=== PATIENT | male | born 1990 | race African-American/Black ===

== ENCOUNTER 2018-05-02 21:23 | Emergency (ER) | payer OTHER ==
[~2018-05-02] VITALS: Ht 188 cm; Wt 77.0 kg
[~2018-05-02 21:23] MED LIST: RISPERDAL; SEROQUEL
[2018-05-03 05:35] LABS: BASOPHILS % 0.8 % (0.0-2.0); EOSINOPHILS % 3.6 % (0.0-5.0); HEMATOCRIT. 38.1 % (42.0-52.0); HEMOGLOBIN. 12.3 g/dL (14.0-18.0); LYMPHOCYTES % 22.3 % (20.0-50.0); MEAN CORPUSCULAR HEMOGLOBIN 25.7 pg (28.0-32.0); MEAN CORPUSCULAR VOLUME 79.4 fL (80.0-94.0); MEAN PLATELET VOLUME 7.3 fl (7.4-10.4); MONOCYTES % 9.8 % (2.0-8.0); NEUTROPHILS % 63.5 % (40.0-76.0); PLATELET 254 x1000/uL (130-400); RED CELL DISTRIBUTION WIDTH 17.1 % (11.6-14.6)
[2018-05-03 05:39] LABS: CHLORIDE 109 mEq/L (98-107)
[2018-05-03 05:44] LABS: ETHANOL BLOOD < 10 mg/dL
[2018-05-03 05:49] LABS: METHADONE URINE SCREEN NEGATIVE (NEGATIVE); OPIATES URINE SCREEN NEGATIVE (NEGATIVE)
[2018-05-03 05:50] LABS: *AMPHETAMINES SCREEN URINE NEGATIVE (NEGATIVE); *BARBITURATES SCREEN URINE NEGATIVE (NEGATIVE); *BENZODIAZEPINES SCREEN URINE NEGATIVE (NEGATIVE); *COCAINE SCREEN URINE NEGATIVE (NEGATIVE); CANNABINOID URINE SCREEN PRESUMTIVE POSITIVE (NEGATIVE); PHENCYCLIDINE URINE SCREEN NEGATIVE (NEGATIVE)
[2018-05-03 07:07] VITALS: BP 111/61
== END 2018-05-03 07:10 | disposition home or self-care (01) ==
LOC: ER 21:23
DX: F31.9 Bipolar disorder, unspecified (principal); F17.200 Nicotine dependence, unspecified, uncomplicated; Z79.899 Other long term (current) drug therapy; Z59.0 Homelessness
CPT/HCPCS: 36415; 80305; 80307; 80320; 80329; 99284; G0480

== ENCOUNTER 2018-05-15 18:59 | Emergency (ER) | payer OTHER | END 2018-05-15 20:37 | disposition left against medical advice (07) | LOC: ER 18:59 | DX: Z53.21 Procedure and treatment not carried out due to patient leaving prior to being seen by health care provider (principal) ==

== ENCOUNTER 2018-05-16 01:35 | Emergency (ER) | payer OTHER ==
[~2018-05-16] VITALS: Ht 177.8 cm; Wt 75.0 kg
[2018-05-16 05:19] VITALS: BP 101/60
== END 2018-05-16 08:45 | disposition left against medical advice (07) ==
LOC: ER 01:35
DX: R42 Dizziness and giddiness (principal); R53.1 Weakness; Z53.21 Procedure and treatment not carried out due to patient leaving prior to being seen by health care provider

== ENCOUNTER 2018-09-18 00:26 | Emergency (ER) | payer OTHER ==
[~2018-09-18] VITALS: Ht 185.4 cm; Wt 75.0 kg
[2018-09-18] MEDS ORDERED: IBUPROFEN 600MG TABLET PO STA (01:21)
[2018-09-18 05:18] VITALS: BP 119/72
== END 2018-09-18 05:20 | disposition home or self-care (01) ==
LOC: ER 00:46
DX: G44.89 Other headache syndrome (principal); M54.89 Other dorsalgia
CPT/HCPCS: 99283

== ENCOUNTER 2018-11-08 18:23 | Emergency (ER) | payer OTHER ==
[~2018-11-08] VITALS: Ht 185.4 cm; Wt 75.0 kg
[2018-11-08] MEDS ORDERED: LORAZEPAM 1MG TABLET PO ONE (20:15)
[2018-11-08 21:43] LABS: BASOPHILS % 0.9 % (0.0-2.0); EOSINOPHILS % 4.6 % (0.0-5.0); HEMATOCRIT. 38.2 % (42.0-52.0); HEMOGLOBIN. 12.7 g/dL (14.0-18.0); LYMPHOCYTES % 27.8 % (20.0-50.0); MEAN CORPUSCULAR VOLUME 84.4 fL (80.0-94.0); MEAN PLATELET VOLUME 8.3 fl (7.4-10.4); MONOCYTES % 11.3 % (2.0-8.0); NEUTROPHILS % 55.4 % (40.0-76.0); PLATELET 264 x1000/uL (130-400); RED BLOOD CELL COUNT 4.53 mill/uL (4.7-6.1); RED CELL DISTRIBUTION WIDTH 15.7 % (11.6-14.6)
[2018-11-08 21:45] LABS: CHLORIDE 110 mEq/L (98-107)
[2018-11-08 21:50] LABS: ETHANOL BLOOD < 10 mg/dL
[2018-11-09 03:44] LABS: CLARITY URINE CLEAR (CLEAR); COLOR URINE YELLOW (YELLOW); KETONES URINE NEGATIVE (NEGATIVE); LEUKOCYTE ESTERASE URINE NEGATIVE (NEGATIVE); NITRITE URINE NEGATIVE (NEGATIVE); OCCULT BLOOD URINE NEGATIVE (NEGATIVE); PH URINE 5.5 (4.5-8.0); PROTEIN URINE NEGATIVE (NEGATIVE); SPECIFIC GRAVITY URINE 1.021 (1.005-1.030); UROBILINOGEN URINE 0.2 E.U./dL (0.2-1.0)
[2018-11-09 04:00] LABS: *BENZODIAZEPINES SCREEN URINE NEGATIVE (NEGATIVE); *COCAINE SCREEN URINE NEGATIVE (NEGATIVE)
[2018-11-09 04:01] LABS: METHADONE URINE SCREEN NEGATIVE (NEGATIVE); OPIATES URINE SCREEN NEGATIVE (NEGATIVE)
[2018-11-09 04:02] LABS: *BARBITURATES SCREEN URINE NEGATIVE (NEGATIVE); PHENCYCLIDINE URINE SCREEN NEGATIVE (NEGATIVE)
[2018-11-09 04:03] LABS: *AMPHETAMINES SCREEN URINE NEGATIVE (NEGATIVE); CANNABINOID URINE SCREEN PRESUMTIVE POSITIVE (NEGATIVE)
[2018-11-09 09:47] VITALS: BP 128/72
== END 2018-11-09 09:49 | disposition home or self-care (01) ==
LOC: ER 18:23
DX: R45.850 Homicidal ideations (principal); R45.851 Suicidal ideations; R45.1 Restlessness and agitation; F17.210 Nicotine dependence, cigarettes, uncomplicated; Z71.6 Tobacco abuse counseling; F43.9 Reaction to severe stress, unspecified
CPT/HCPCS: 36415; 80305; 80307; 80320; 80329; 81003; 99284; 99406; G0480

== ENCOUNTER 2018-11-29 15:15 | Emergency (ER) | payer OTHER ==
[~2018-11-29] VITALS: Ht 185.4 cm; Wt 73.0 kg
[2018-11-29 15:19] VITALS: BP 107/51
== END 2018-11-29 18:07 | disposition left against medical advice (07) ==
LOC: ER 15:15
DX: Z53.21 Procedure and treatment not carried out due to patient leaving prior to being seen by health care provider (principal)

== ENCOUNTER 2018-12-27 21:15 | Emergency (ER) | payer OTHER ==
[~2018-12-27] VITALS: Ht 185.4 cm; Wt 75.0 kg
[2018-12-28] MEDS ORDERED: ACETAMINOPHEN 325MG TABLET PO ONE (00:15)
[2018-12-28 01:48] LABS: CLARITY URINE CLEAR (CLEAR); COLOR URINE YELLOW (YELLOW); KETONES URINE TRACE (NEGATIVE); LEUKOCYTE ESTERASE URINE NEGATIVE (NEGATIVE); NITRITE URINE NEGATIVE (NEGATIVE); OCCULT BLOOD URINE NEGATIVE (NEGATIVE); PH URINE 6.5 (4.5-8.0); PROTEIN URINE NEGATIVE (NEGATIVE); SPECIFIC GRAVITY URINE 1.026 (1.005-1.030)
[2018-12-28 03:30] VITALS: BP 112/54
== END 2018-12-28 05:15 | disposition home or self-care (01) ==
LOC: ER 21:15
DX: R10.9 Unspecified abdominal pain (principal); Z59.0 Homelessness
CPT/HCPCS: 81003; 99283

== ENCOUNTER 2019-01-06 21:21 | Emergency (ER) | payer OTHER ==
[~2019-01-06] VITALS: Ht 185.4 cm; Wt 75.0 kg
[2019-01-06] MEDS ORDERED: IBUPROFEN 600MG TABLET PO ONE (22:30)
[2019-01-06] MEDS ORDERED: ACETAMINOPHEN 500MG TABLET PO ONE (22:30)
[2019-01-07 04:00] VITALS: BP 123/78
== END 2019-01-07 05:03 | disposition left against medical advice (07) ==
LOC: ER 21:21
DX: M54.5 Low back pain (principal); Z59.0 Homelessness; Z79.899 Other long term (current) drug therapy
CPT/HCPCS: 99283

== ENCOUNTER 2019-01-12 13:16 | Emergency (ER) | payer OTHER ==
[~2019-01-12] VITALS: Ht 175.3 cm; Wt 75.0 kg
[2019-01-12 16:40] LABS: CLARITY URINE CLOUDY (CLEAR); COLOR URINE YELLOW (YELLOW); KETONES URINE NEGATIVE (NEGATIVE); LEUKOCYTE ESTERASE URINE NEGATIVE (NEGATIVE); NITRITE URINE NEGATIVE (NEGATIVE); OCCULT BLOOD URINE NEGATIVE (NEGATIVE); PH URINE >=9.0 (4.5-8.0); PROTEIN URINE NEGATIVE (NEGATIVE); SPECIFIC GRAVITY URINE 1.023 (1.005-1.030)
[2019-01-12 17:03] LABS: *AMPHETAMINES SCREEN URINE NEGATIVE (NEGATIVE); CANNABINOID URINE SCREEN PRESUMTIVE POSITIVE (NEGATIVE); PHENCYCLIDINE URINE SCREEN NEGATIVE (NEGATIVE)
[2019-01-12 17:04] LABS: *BARBITURATES SCREEN URINE NEGATIVE (NEGATIVE); *BENZODIAZEPINES SCREEN URINE NEGATIVE (NEGATIVE); *COCAINE SCREEN URINE NEGATIVE (NEGATIVE); METHADONE URINE SCREEN NEGATIVE (NEGATIVE); OPIATES URINE SCREEN NEGATIVE (NEGATIVE)
[2019-01-13 09:00] VITALS: BP 122/85
== END 2019-01-13 09:00 | disposition home or self-care (01) ==
LOC: ER 13:16
DX: J06.9 Acute upper respiratory infection, unspecified (principal); R03.0 Elevated blood-pressure reading, without diagnosis of hypertension; Z59.0 Homelessness
CPT/HCPCS: 71045; 80305; 81003; 99284

== ENCOUNTER 2019-02-06 17:58 | Emergency (ER) | payer OTHER ==
[~2019-02-06] VITALS: Ht 185.4 cm; Wt 75.0 kg
[2019-02-06 18:15] VITALS: BP 108/68
== END 2019-02-06 23:45 | disposition home or self-care (01) ==
LOC: ER 17:58
DX: F10.129 Alcohol abuse with intoxication, unspecified (principal); Y90.0 Blood alcohol level of less than 20 mg/100 ml
CPT/HCPCS: 82962; 99283

== ENCOUNTER 2019-03-09 21:01 | Emergency (ER) | payer OTHER ==
[~2019-03-09] VITALS: Ht 185.4 cm; Wt 75.0 kg
[2019-03-10] MEDS ORDERED: IBUPROFEN 600MG TABLET PO ONE (01:30)
[2019-03-10 06:30] VITALS: BP 139/84
== END 2019-03-10 06:47 | disposition home or self-care (01) ==
LOC: ER 21:01
DX: J06.9 Acute upper respiratory infection, unspecified (principal); Z59.0 Homelessness
CPT/HCPCS: 99283

== ENCOUNTER 2019-03-21 15:54 | Emergency (ER) | payer MEDICAID, OTHER ==
[~2019-03-21] VITALS: Ht 185.4 cm; Wt 75.0 kg
[2019-03-21] MEDS ORDERED: IBUPROFEN 600MG TABLET PO ONE (18:30)
[2019-03-22 01:27] VITALS: BP 107/55
== END 2019-03-22 06:25 | disposition left against medical advice (07) ==
LOC: ER 15:54
DX: R10.9 Unspecified abdominal pain (principal); Z59.0 Homelessness
CPT/HCPCS: 74021; 99283

== ENCOUNTER 2019-04-23 18:23 | Emergency (ER) | payer OTHER ==
[~2019-04-23] VITALS: Ht 185.4 cm; Wt 77.0 kg
[2019-04-23] MEDS ORDERED: HALOPERIDOL LACTATE 5MG/ML VIAL IM STA (18:51)
[2019-04-23 19:13] LABS: BASOPHILS % 0.4 % (0.0-2.0); CHLORIDE 105 mEq/L (98-107); EOSINOPHILS % 3.4 % (0.0-5.0); HEMATOCRIT. 42.8 % (42.0-52.0); HEMOGLOBIN. 14.1 g/dL (14.0-18.0); LYMPHOCYTES % 22.3 % (20.0-50.0); MEAN CORPUSCULAR HEMOGLOBIN 27.6 pg (28.0-32.0); MEAN PLATELET VOLUME 8.3 fl (7.4-10.4); MONOCYTES % 10.3 % (2.0-8.0); NEUTROPHILS % 63.6 % (40.0-76.0); PLATELET 220 x1000/uL (130-400); RED CELL DISTRIBUTION WIDTH 15.7 % (11.6-14.6)
[2019-04-23 19:17] LABS: ETHANOL BLOOD < 10 mg/dL
[2019-04-24 01:36] LABS: CLARITY URINE CLEAR (CLEAR); COLOR URINE YELLOW (YELLOW); KETONES URINE NEGATIVE (NEGATIVE); LEUKOCYTE ESTERASE URINE NEGATIVE (NEGATIVE); NITRITE URINE NEGATIVE (NEGATIVE); OCCULT BLOOD URINE NEGATIVE (NEGATIVE); PH URINE 5.5 (4.5-8.0); PROTEIN URINE NEGATIVE (NEGATIVE); SPECIFIC GRAVITY URINE 1.025 (1.005-1.030); UROBILINOGEN URINE 0.2 E.U./dL (0.2-1.0)
[2019-04-24 01:50] LABS: *AMPHETAMINES SCREEN URINE NEGATIVE (NEGATIVE); *BARBITURATES SCREEN URINE NEGATIVE (NEGATIVE); *BENZODIAZEPINES SCREEN URINE NEGATIVE (NEGATIVE); *COCAINE SCREEN URINE NEGATIVE (NEGATIVE)
[2019-04-24 01:51] LABS: CANNABINOID URINE SCREEN NEGATIVE (NEGATIVE); METHADONE URINE SCREEN NEGATIVE (NEGATIVE); OPIATES URINE SCREEN NEGATIVE (NEGATIVE); PHENCYCLIDINE URINE SCREEN NEGATIVE (NEGATIVE)
[2019-04-24 13:30] VITALS: BP 100/51
== END 2019-04-24 14:02 | disposition home or self-care (01) ==
LOC: ER 18:23
DX: R45.850 Homicidal ideations (principal); F32.9 Major depressive disorder, single episode, unspecified; Z59.0 Homelessness
CPT/HCPCS: 36415; 80053; 80305; 80320; 81003; 85025; 96372; 99285; J1630; G0480

== ENCOUNTER 2019-04-25 20:27 | Emergency (ER) | payer OTHER ==
[~2019-04-25] VITALS: Ht 185.4 cm; Wt 76.0 kg
[2019-04-26 08:13] VITALS: BP 123/89
== END 2019-04-26 08:15 | disposition home or self-care (01) ==
LOC: ER 20:27
DX: Z59.0 Homelessness (principal); Z75.1 Person awaiting admission to adequate facility elsewhere
CPT/HCPCS: 99285

== ENCOUNTER 2019-05-03 12:02 | Emergency (ER) | payer OTHER ==
[~2019-05-03] VITALS: Ht 185.4 cm; Wt 74.8 kg
[2019-05-03 13:15] VITALS: BP 114/71
[2019-05-03] MEDS ORDERED: KETOROLAC 30MG/ML VIAL IM ONE (13:15)
[2019-05-03 13:57] LABS: CLARITY URINE CLEAR (CLEAR); COLOR URINE YELLOW (YELLOW); KETONES URINE TRACE (NEGATIVE); LEUKOCYTE ESTERASE URINE 1+ (NEGATIVE); NITRITE URINE NEGATIVE (NEGATIVE); OCCULT BLOOD URINE NEGATIVE (NEGATIVE); PH URINE >=9.0 (4.5-8.0); PROTEIN URINE NEGATIVE (NEGATIVE); SPECIFIC GRAVITY URINE 1.028 (1.005-1.030)
== END 2019-05-03 14:36 | disposition home or self-care (01) ==
LOC: ER 12:02
DX: M54.5 Low back pain (principal); N39.0 Urinary tract infection, site not specified
CPT/HCPCS: 72100; 81003; 87086; 96372; 99284; J1885

== ENCOUNTER 2019-05-07 21:33 | Emergency (ER) | payer OTHER ==
[~2019-05-07] VITALS: Ht 185.4 cm; Wt 75.0 kg
[2019-05-08 06:42] VITALS: BP 123/65
[2019-05-08] MEDS ORDERED: FLUTICASONE PROPIONATE 50MCG/SPRAY BOTTLE BOTHNSTRLS SCH (09:00)
== END 2019-05-08 09:25 | disposition home or self-care (01) ==
LOC: ER 21:33
DX: R09.81 Nasal congestion (principal); Z59.0 Homelessness
CPT/HCPCS: 99285

== ENCOUNTER 2019-05-18 19:19 | Emergency (ER) | payer OTHER ==
[~2019-05-18] VITALS: Ht 185.4 cm; Wt 76.1 kg
[2019-05-19 06:50] VITALS: BP 114/75
== END 2019-05-19 08:13 | disposition left against medical advice (07) ==
LOC: ER 19:19
DX: Z59.0 Homelessness (principal)
CPT/HCPCS: 99281

== ENCOUNTER 2019-05-26 16:22 | Emergency (ER) | payer OTHER ==
[~2019-05-26] VITALS: Ht 185.4 cm; Wt 75.0 kg
[2019-05-26] MEDS ORDERED: ARIP20TA2 GT (16:36)
[2019-05-26] MEDS ORDERED: MECLIZINE 25MG TABLET PO ONE (17:30)
[2019-05-26 17:39] VITALS: BP 136/81
== END 2019-05-26 17:41 | disposition home or self-care (01) ==
LOC: ER 16:22
DX: R42 Dizziness and giddiness (principal); R00.1 Bradycardia, unspecified; R03.0 Elevated blood-pressure reading, without diagnosis of hypertension
CPT/HCPCS: 93005; 99283; J8597

== ENCOUNTER 2019-06-16 14:55 | Emergency (ER) | payer OTHER ==
[~2019-06-16] VITALS: Ht 185.4 cm; Wt 75.0 kg
[~2019-06-16 14:55] MED LIST changes: +ARIP20TA2 GT; -RISPERDAL; -SEROQUEL
[2019-06-16] MEDS ORDERED: ONDANSETRON HCL 4MG/2ML INJ IV STA (15:35)
[2019-06-16] MEDS ORDERED: KETOROLAC 30MG/ML VIAL IV STA (15:35)
[2019-06-16] MEDS ORDERED: SODIUM CHLORIDE 0.9% 1,000 ML IV ONE (15:35)
[2019-06-16 16:03] LABS: CLARITY URINE CLEAR (CLEAR); COLOR URINE YELLOW (YELLOW); KETONES URINE NEGATIVE (NEGATIVE); LEUKOCYTE ESTERASE URINE 1+ (NEGATIVE); NITRITE URINE NEGATIVE (NEGATIVE); OCCULT BLOOD URINE NEGATIVE (NEGATIVE); PROTEIN URINE NEGATIVE (NEGATIVE)
[2019-06-16 16:06] LABS: BASOPHILS % 0.6 % (0.0-2.0); EOSINOPHILS % 1.3 % (0.0-5.0); HEMATOCRIT. 39.2 % (42.0-52.0); HEMOGLOBIN. 12.9 g/dL (14.0-18.0); LYMPHOCYTES % 12.7 % (20.0-50.0); MEAN CORPUSCULAR HEMOGLOBIN 26.8 pg (28.0-32.0); MEAN CORPUSCULAR VOLUME 81.7 fL (80.0-94.0); MEAN PLATELET VOLUME 8.2 fl (7.4-10.4); MONOCYTES % 7.2 % (2.0-8.0); NEUTROPHILS % 78.2 % (40.0-76.0); PLATELET 257 x1000/uL (130-400); RED BLOOD CELL COUNT 4.79 mill/uL (4.7-6.1); RED CELL DISTRIBUTION WIDTH 15.6 % (11.6-14.6)
[2019-06-16 16:09] LABS: CHLORIDE 108 mEq/L (98-107)
[2019-06-16 16:13] LABS: ETHANOL BLOOD < 10 mg/dL
[2019-06-16 16:23] LABS: *AMPHETAMINES SCREEN URINE NEGATIVE (NEGATIVE); *BARBITURATES SCREEN URINE NEGATIVE (NEGATIVE); *BENZODIAZEPINES SCREEN URINE NEGATIVE (NEGATIVE); *COCAINE SCREEN URINE NEGATIVE (NEGATIVE); OPIATES URINE SCREEN NEGATIVE (NEGATIVE)
[2019-06-16 16:24] LABS: CANNABINOID URINE SCREEN PRESUMTIVE POSITIVE (NEGATIVE); METHADONE URINE SCREEN NEGATIVE (NEGATIVE); PHENCYCLIDINE URINE SCREEN NEGATIVE (NEGATIVE)
[2019-06-16 17:35] VITALS: BP 126/72
== END 2019-06-16 18:00 | disposition home or self-care (01) ==
LOC: ER 14:55
DX: R10.13 Epigastric pain (principal); R03.0 Elevated blood-pressure reading, without diagnosis of hypertension
CPT/HCPCS: 36415; 74176; 80053; 80305; 80320; 81003; 83690; 85025; 93005; 96374; 96375; 99285; J1885; J2405; J7030; G0480

== ENCOUNTER 2019-07-06 12:07 | Emergency (ER) | payer OTHER ==
[~2019-07-06] VITALS: Ht 185.4 cm; Wt 75.0 kg
[2019-07-06 12:19] VITALS: BP 155/75
== END 2019-07-06 13:01 | disposition left against medical advice (07) ==
LOC: ER 12:07
DX: R07.89 Other chest pain (principal); R45.850 Homicidal ideations
CPT/HCPCS: 93005; 99283

== ENCOUNTER 2019-07-09 18:02 | Emergency (ER) | payer MEDICAID, OTHER ==
[~2019-07-09] VITALS: Ht 165.1 cm; Wt 56.0 kg
[2019-07-09 18:13] VITALS: BP 147/76
== END 2019-07-09 19:00 | disposition left against medical advice (07) ==
LOC: ER 18:02
DX: Z53.21 Procedure and treatment not carried out due to patient leaving prior to being seen by health care provider (principal)

== ENCOUNTER 2019-08-10 13:05 | Emergency (ER) | payer MEDICAID ==
[~2019-08-10] VITALS: Ht 185.4 cm; Wt 75.0 kg
[2019-08-10 14:06] LABS: BASOPHILS % 1.3 % (0.0-2.0); EOSINOPHILS % 3.4 % (0.0-5.0); HEMATOCRIT. 38.7 % (42.0-52.0); HEMOGLOBIN. 12.9 g/dL (14.0-18.0); LYMPHOCYTES % 22.4 % (20.0-50.0); MEAN CORPUSCULAR HEMOGLOBIN 27.3 pg (28.0-32.0); MEAN CORPUSCULAR VOLUME 81.8 fL (80.0-94.0); MEAN PLATELET VOLUME 8.4 fl (7.4-10.4); MONOCYTES % 11.8 % (2.0-8.0); NEUTROPHILS % 61.1 % (40.0-76.0); PLATELET 279 x1000/uL (130-400); RED BLOOD CELL COUNT 4.73 mill/uL (4.7-6.1); RED CELL DISTRIBUTION WIDTH 15.5 % (11.6-14.6)
[2019-08-10 14:09] LABS: CHLORIDE 110 mEq/L (98-107)
[2019-08-10 14:15] LABS: ETHANOL BLOOD 18 mg/dL
[2019-08-10] MEDS ORDERED: LORAZEPAM 1MG TABLET PO ONE (15:15)
[2019-08-10] MEDS: ARIPIPRAZOLE 5MG TABLET PO SCH (15:44)
[2019-08-10 16:23] LABS: CLARITY URINE CLOUDY (CLEAR); COLOR URINE YELLOW (YELLOW); KETONES URINE TRACE (NEGATIVE); LEUKOCYTE ESTERASE URINE NEGATIVE (NEGATIVE); NITRITE URINE NEGATIVE (NEGATIVE); OCCULT BLOOD URINE NEGATIVE (NEGATIVE); PH URINE 6.5 (4.5-8.0); PROTEIN URINE NEGATIVE (NEGATIVE); SPECIFIC GRAVITY URINE 1.034 (1.005-1.030)
[2019-08-10 16:35] LABS: *AMPHETAMINES SCREEN URINE NEGATIVE (NEGATIVE); *BARBITURATES SCREEN URINE NEGATIVE (NEGATIVE); *BENZODIAZEPINES SCREEN URINE NEGATIVE (NEGATIVE); *COCAINE SCREEN URINE NEGATIVE (NEGATIVE); METHADONE URINE SCREEN NEGATIVE (NEGATIVE); OPIATES URINE SCREEN NEGATIVE (NEGATIVE)
[2019-08-10 16:36] LABS: CANNABINOID URINE SCREEN PRESUMTIVE POSITIVE (NEGATIVE); PHENCYCLIDINE URINE SCREEN NEGATIVE (NEGATIVE)
[2019-08-10] MEDS ORDERED: QUETIAPINE FUMARATE 50MG TABLET PO ONE (23:00)
[2019-08-11] MEDS: ARIPIPRAZOLE 5MG TABLET PO SCH (09:51)
[2019-08-11 13:49] VITALS: BP 122/73
== END 2019-08-11 14:05 | disposition home or self-care (01) ==
LOC: ER 13:05
DX: R45.851 Suicidal ideations (principal)
CPT/HCPCS: 36415; 80053; 80305; 80307; 80320; 80329; 81003; 85025; 99285; G0480

== ENCOUNTER 2019-09-03 20:58 | Emergency (ER) | payer MEDICAID, OTHER ==
[~2019-09-03] VITALS: Ht 185.4 cm; Wt 75.0 kg
[2019-09-03 23:39] LABS: CHLORIDE 108 mEq/L (98-107)
[2019-09-03 23:43] LABS: ETHANOL BLOOD < 10 mg/dL
[2019-09-03 23:47] LABS: BASOPHILS % 0.4 % (0.0-2.0); EOSINOPHILS % 2.5 % (0.0-5.0); HEMOGLOBIN. 12.6 g/dL (14.0-18.0); LYMPHOCYTES % 22.9 % (20.0-50.0); MEAN CORPUSCULAR HEMOGLOBIN 27.2 pg (28.0-32.0); MEAN CORPUSCULAR VOLUME 82.1 fL (80.0-94.0); MEAN PLATELET VOLUME 8.6 fl (7.4-10.4); MONOCYTES % 11.3 % (2.0-8.0); NEUTROPHILS % 62.9 % (40.0-76.0); PLATELET 272 x1000/uL (130-400); RED BLOOD CELL COUNT 4.63 mill/uL (4.7-6.1)
[2019-09-03] MEDS ORDERED: SODIUM CHLORIDE 0.9% 1,000 ML IV ONE (23:51)
[2019-09-04 06:57] LABS: CLARITY URINE CLOUDY (CLEAR); COLOR URINE YELLOW (YELLOW); KETONES URINE NEGATIVE (NEGATIVE); LEUKOCYTE ESTERASE URINE 1+ (NEGATIVE); NITRITE URINE NEGATIVE (NEGATIVE); OCCULT BLOOD URINE NEGATIVE (NEGATIVE); PH URINE 5.5 (4.5-8.0); PROTEIN URINE NEGATIVE (NEGATIVE); SPECIFIC GRAVITY URINE 1.032 (1.005-1.030)
[2019-09-04 07:08] VITALS: BP 120/70
[2019-09-04 07:20] LABS: *BENZODIAZEPINES SCREEN URINE NEGATIVE (NEGATIVE); *COCAINE SCREEN URINE NEGATIVE (NEGATIVE)
[2019-09-04 07:21] LABS: *AMPHETAMINES SCREEN URINE NEGATIVE (NEGATIVE); *BARBITURATES SCREEN URINE NEGATIVE (NEGATIVE); CANNABINOID URINE SCREEN NEGATIVE (NEGATIVE); METHADONE URINE SCREEN NEGATIVE (NEGATIVE); OPIATES URINE SCREEN NEGATIVE (NEGATIVE); PHENCYCLIDINE URINE SCREEN NEGATIVE (NEGATIVE)
== END 2019-09-04 07:11 | disposition home or self-care (01) ==
LOC: ER 20:58
DX: R45.850 Homicidal ideations (principal)
CPT/HCPCS: 36415; 80053; 80305; 80307; 80320; 80329; 81003; 85025; 87086; 99285; J7030; G0480

== ENCOUNTER 2019-10-04 05:30 | Emergency (ER) | payer OTHER ==
[~2019-10-04] VITALS: Ht 185.4 cm; Wt 72.0 kg
[2019-10-04 05:33] VITALS: BP 130/80
[2019-10-04] MEDS ORDERED: LIDOCAINE 5% PATCH TOP SCH (07:00)
== END 2019-10-04 07:06 | disposition left against medical advice (07) ==
LOC: ER 06:11
DX: M54.5 Low back pain (principal)
CPT/HCPCS: 99281

== ENCOUNTER 2019-10-14 06:30 | Emergency (ER) | payer OTHER ==
[~2019-10-14] VITALS: Ht 185.4 cm; Wt 75.0 kg
[2019-10-14 06:31] VITALS: BP 110/60
[2019-10-14] MEDS ORDERED: NAPROXEN 250MG TABLET PO ONE (07:00)
== END 2019-10-14 07:14 | disposition home or self-care (01) ==
LOC: ER 06:30
DX: M54.5 Low back pain (principal); F17.290 Nicotine dependence, other tobacco product, uncomplicated
CPT/HCPCS: 93005; 99283

== ENCOUNTER 2019-11-05 11:46 | Emergency (ER) | payer OTHER ==
[~2019-11-05] VITALS: Ht 185.4 cm; Wt 74.0 kg
[2019-11-05 12:47] LABS: BASOPHILS % 1.1 % (0.0-2.0); EOSINOPHILS % 1.4 % (0.0-5.0); HEMATOCRIT. 37.6 % (42.0-52.0); HEMOGLOBIN. 12.5 g/dL (14.0-18.0); LYMPHOCYTES % 20.1 % (20.0-50.0); MEAN CORPUSCULAR HEMOGLOBIN 27.5 pg (28.0-32.0); MEAN CORPUSCULAR VOLUME 82.7 fL (80.0-94.0); MEAN PLATELET VOLUME 8.7 fl (7.4-10.4); MONOCYTES % 10.3 % (2.0-8.0); NEUTROPHILS % 67.1 % (40.0-76.0); PLATELET 238 x1000/uL (130-400); RED BLOOD CELL COUNT 4.55 mill/uL (4.7-6.1); RED CELL DISTRIBUTION WIDTH 16.6 % (11.6-14.6)
[2019-11-05 12:53] LABS: CHLORIDE 107 mEq/L (98-107)
[2019-11-05 12:57] LABS: ETHANOL BLOOD < 10 mg/dL
[2019-11-05 13:21] LABS: CLARITY URINE CLEAR (CLEAR); COLOR URINE YELLOW (YELLOW); KETONES URINE NEGATIVE (NEGATIVE); LEUKOCYTE ESTERASE URINE TRACE (NEGATIVE); NITRITE URINE NEGATIVE (NEGATIVE); OCCULT BLOOD URINE NEGATIVE (NEGATIVE); PH URINE 8.5 (4.5-8.0); PROTEIN URINE NEGATIVE (NEGATIVE); SPECIFIC GRAVITY URINE 1.031 (1.005-1.030)
[2019-11-05 14:00] VITALS: BP 127/80
[2019-11-05 14:09] LABS: *AMPHETAMINES SCREEN URINE NEGATIVE (NEGATIVE); *BARBITURATES SCREEN URINE NEGATIVE (NEGATIVE); *BENZODIAZEPINES SCREEN URINE NEGATIVE (NEGATIVE); *COCAINE SCREEN URINE NEGATIVE (NEGATIVE); CANNABINOID URINE SCREEN PRESUMTIVE POSITIVE (NEGATIVE); METHADONE URINE SCREEN NEGATIVE (NEGATIVE); PHENCYCLIDINE URINE SCREEN NEGATIVE (NEGATIVE)
[2019-11-05 14:10] LABS: OPIATES URINE SCREEN NEGATIVE (NEGATIVE)
== END 2019-11-05 15:05 | disposition left against medical advice (07) ==
LOC: ER 11:46
DX: R45.850 Homicidal ideations (principal); F20.9 Schizophrenia, unspecified
CPT/HCPCS: 36415; 80053; 80305; 80320; 81003; 85025; 99283; G0480

== ENCOUNTER 2019-11-24 19:38 | Emergency (ER) | payer OTHER ==
[~2019-11-24] VITALS: Ht 182.9 cm; Wt 73.0 kg
[2019-11-24] MEDS ORDERED: OLANZAPINE 10 MG/VIAL IM ONE (22:15)
[2019-11-24 23:03] LABS: BASOPHILS % 1.4 % (0.0-2.0); EOSINOPHILS % 5.5 % (0.0-5.0); HEMATOCRIT. 37.6 % (42.0-52.0); HEMOGLOBIN. 12.5 g/dL (14.0-18.0); MEAN CORPUSCULAR HEMOGLOBIN 27.2 pg (28.0-32.0); MEAN CORPUSCULAR VOLUME 81.7 fL (80.0-94.0); MEAN PLATELET VOLUME 8.6 fl (7.4-10.4); MONOCYTES % 10.9 % (2.0-8.0); NEUTROPHILS % 50.2 % (40.0-76.0); PLATELET 222 x1000/uL (130-400); RED BLOOD CELL COUNT 4.61 mill/uL (4.7-6.1); RED CELL DISTRIBUTION WIDTH 16.2 % (11.6-14.6)
[2019-11-24 23:11] LABS: CHLORIDE 105 mEq/L (98-107)
[2019-11-24 23:17] LABS: ETHANOL BLOOD 15 mg/dL
[2019-11-25 01:53] LABS: *AMPHETAMINES SCREEN URINE NEGATIVE (NEGATIVE); *BARBITURATES SCREEN URINE NEGATIVE (NEGATIVE); *BENZODIAZEPINES SCREEN URINE NEGATIVE (NEGATIVE); *COCAINE SCREEN URINE NEGATIVE (NEGATIVE); CANNABINOID URINE SCREEN PRESUMTIVE POSITIVE (NEGATIVE); METHADONE URINE SCREEN NEGATIVE (NEGATIVE); OPIATES URINE SCREEN NEGATIVE (NEGATIVE); PHENCYCLIDINE URINE SCREEN NEGATIVE (NEGATIVE)
[2019-11-25 05:42] VITALS: BP 97/62
== END 2019-11-25 05:51 | disposition home or self-care (01) ==
LOC: ER 19:38
DX: R45.850 Homicidal ideations (principal); F20.9 Schizophrenia, unspecified
CPT/HCPCS: 36415; 80053; 80305; 80320; 85025; 96372; 99285; J3490; G0480

== ENCOUNTER 2020-02-22 14:14 | Emergency (ER) | payer OTHER ==
[~2020-02-22] VITALS: Ht 185.4 cm; Wt 75.0 kg
[2020-02-22 17:53] LABS: BASOPHILS % 0.7 % (0.0-2.0); EOSINOPHILS % 2.3 % (0.0-5.0); HEMOGLOBIN. 13.6 g/dL (14.0-18.0); LYMPHOCYTES % 22.8 % (20.0-50.0); MEAN CORPUSCULAR HEMOGLOBIN 27.3 pg (28.0-32.0); MEAN CORPUSCULAR VOLUME 82.3 fL (80.0-94.0); MEAN PLATELET VOLUME 8.1 fl (7.4-10.4); MONOCYTES % 11.1 % (2.0-8.0); NEUTROPHILS % 63.1 % (40.0-76.0); PLATELET 335 x1000/uL (130-400); RED BLOOD CELL COUNT 4.99 mill/uL (4.7-6.1); RED CELL DISTRIBUTION WIDTH 16.1 % (11.6-14.6)
[2020-02-22 17:54] LABS: CHLORIDE 107 mEq/L (98-107)
[2020-02-22 17:58] LABS: ETHANOL BLOOD < 10 mg/dL
[2020-02-22 19:54] LABS: CLARITY URINE CLEAR (CLEAR); COLOR URINE YELLOW (YELLOW); KETONES URINE TRACE (NEGATIVE); LEUKOCYTE ESTERASE URINE TRACE (NEGATIVE); NITRITE URINE NEGATIVE (NEGATIVE); OCCULT BLOOD URINE NEGATIVE (NEGATIVE); PH URINE 7.5 (4.5-8.0); PROTEIN URINE NEGATIVE (NEGATIVE); SPECIFIC GRAVITY URINE 1.022 (1.005-1.030)
[2020-02-22 20:27] LABS: CANNABINOID URINE SCREEN PRESUMTIVE POSITIVE (NEGATIVE); METHADONE URINE SCREEN NEGATIVE (NEGATIVE); OPIATES URINE SCREEN NEGATIVE (NEGATIVE); PHENCYCLIDINE URINE SCREEN NEGATIVE (NEGATIVE)
[2020-02-22 20:28] LABS: *AMPHETAMINES SCREEN URINE NEGATIVE (NEGATIVE); *BARBITURATES SCREEN URINE NEGATIVE (NEGATIVE); *BENZODIAZEPINES SCREEN URINE NEGATIVE (NEGATIVE); *COCAINE SCREEN URINE NEGATIVE (NEGATIVE)
[2020-02-22 21:00] VITALS: BP 125/69
== END 2020-02-23 08:33 | disposition home or self-care (01) ==
LOC: ER 14:32
DX: F33.3 Major depressive disorder, recurrent, severe with psychotic symptoms (principal); F43.23 Adjustment disorder with mixed anxiety and depressed mood; Z63.4 Disappearance and death of family member; F17.210 Nicotine dependence, cigarettes, uncomplicated; F12.90 Cannabis use, unspecified, uncomplicated
CPT/HCPCS: 36415; 80048; 80305; 80307; 80320; 80329; 81003; 85025; 99284; G0480

== ENCOUNTER 2020-03-12 11:36 | Emergency (ER) | payer OTHER ==
[~2020-03-12] VITALS: Ht 177.8 cm; Wt 80.0 kg
[2020-03-12 11:44] VITALS: BP 146/63
[2020-03-12 12:48] LABS: CLARITY URINE CLEAR (CLEAR); COLOR URINE YELLOW (YELLOW); KETONES URINE NEGATIVE (NEGATIVE); LEUKOCYTE ESTERASE URINE 1+ (NEGATIVE); NITRITE URINE NEGATIVE (NEGATIVE); OCCULT BLOOD URINE NEGATIVE (NEGATIVE); PH URINE 7.5 (4.5-8.0); PROTEIN URINE NEGATIVE (NEGATIVE); SPECIFIC GRAVITY URINE 1.025 (1.005-1.030)
[2020-03-12 13:03] LABS: *AMPHETAMINES SCREEN URINE NEGATIVE (NEGATIVE); *BARBITURATES SCREEN URINE NEGATIVE (NEGATIVE)
[2020-03-12 13:04] LABS: *BENZODIAZEPINES SCREEN URINE NEGATIVE (NEGATIVE); *COCAINE SCREEN URINE NEGATIVE (NEGATIVE); CANNABINOID URINE SCREEN PRESUMTIVE POSITIVE (NEGATIVE); METHADONE URINE SCREEN NEGATIVE (NEGATIVE); OPIATES URINE SCREEN PRESUMTIVE POSITIVE (NEGATIVE); PHENCYCLIDINE URINE SCREEN NEGATIVE (NEGATIVE)
== END 2020-03-12 12:56 | disposition left against medical advice (07) ==
LOC: ER 11:41
DX: R45.850 Homicidal ideations (principal); R03.0 Elevated blood-pressure reading, without diagnosis of hypertension; F31.9 Bipolar disorder, unspecified
CPT/HCPCS: 80305; 81003; 93005; 99284

== ENCOUNTER 2020-07-31 06:06 | Emergency (ER) | payer OTHER ==
[~2020-07-31] VITALS: Ht 185.4 cm; Wt 76.3 kg
[2020-07-31] MEDS ORDERED: ACETAMINOPHEN 325MG TABLET PO ONE ×2 (07:15→08:00)
[2020-07-31] MEDS ORDERED: KETOROLAC 60MG/2ML VIAL IM ONE (07:15)
[2020-07-31] MEDS ORDERED: LIDOCAINE 5% PATCH TOP SCH (07:15)
[2020-07-31] MEDS ORDERED: DEXAMETHASONE 10 MG/ML VIAL IV ONE (07:15)
[2020-07-31 07:51] VITALS: BP 115/78
[2020-07-31] MEDS ORDERED: BACL-141 MT (08:00)
[2020-07-31] MEDS ORDERED: ACET-2708 MT (08:00)
[2020-07-31] MEDS ORDERED: IBUP-2029 MT (08:00)
[2020-07-31 08:28] LABS: *AMPHETAMINES SCREEN URINE NEGATIVE (NEGATIVE); *BARBITURATES SCREEN URINE NEGATIVE (NEGATIVE); *BENZODIAZEPINES SCREEN URINE NEGATIVE (NEGATIVE)
[2020-07-31 08:29] LABS: *COCAINE SCREEN URINE NEGATIVE (NEGATIVE); OPIATES URINE SCREEN PRESUMTIVE POSITIVE (NEGATIVE); PHENCYCLIDINE URINE SCREEN NEGATIVE (NEGATIVE)
[2020-07-31 09:36] LABS: CANNABINOID URINE SCREEN NEGATIVE (NEGATIVE)
[2020-07-31 09:41] LABS: METHADONE URINE SCREEN NEGATIVE (NEGATIVE)
== END 2020-07-31 08:16 | disposition home or self-care (01) ==
LOC: ER 06:06
DX: M54.5 Low back pain (principal); F12.90 Cannabis use, unspecified, uncomplicated; F25.0 Schizoaffective disorder, bipolar type
CPT/HCPCS: 80305; 96372; 96374; 99283; J1100; J1885

== ENCOUNTER 2020-08-04 15:17 | Emergency (ER) | payer OTHER ==
[~2020-08-04] VITALS: Ht 172.7 cm; Wt 75.0 kg
[~2020-08-04 15:17] MED LIST changes: +ACET-2708 MT; +BACL-141 MT; +IBUP-2029 MT
[2020-08-04 15:43] VITALS: BP 134/84
== END 2020-08-04 17:52 | disposition left against medical advice (07) ==
LOC: ER 15:17
DX: Z53.21 Procedure and treatment not carried out due to patient leaving prior to being seen by health care provider (principal); R07.9 Chest pain, unspecified

== ENCOUNTER 2022-02-27 07:53 | Emergency (ER) | payer OTHER ==
[~2022-02-27] VITALS: Ht 180.3 cm; Wt 82.0 kg
[2022-02-27 08:00] VITALS: BP 116/72
[2022-02-27 09:26] LABS: BASOPHILS % 0.9 % (0.0-2.0); EOSINOPHILS % 2.5 % (0.0-5.0); HEMATOCRIT. 45.8 % (42.0-52.0); HEMOGLOBIN. 15.3 g/dL (14.0-18.0); LYMPHOCYTES % 20.5 % (20.0-50.0); MEAN CORPUSCULAR HEMOGLOBIN 29.2 pg (28.0-32.0); MEAN CORPUSCULAR VOLUME 87.7 fL (80.0-94.0); MEAN PLATELET VOLUME 8.5 fl (7.4-10.4); NEUTROPHILS % 64.1 % (40.0-76.0); PLATELET 214 x1000/uL (130-400); RED BLOOD CELL COUNT 5.23 mill/uL (4.7-6.1); RED CELL DISTRIBUTION WIDTH 15.1 % (11.6-14.6)
[2022-02-27] MEDS ORDERED: ARIPIPRAZOLE 5MG TABLET PO SCH (09:30)
[2022-02-27 09:33] LABS: CHLORIDE 108 mEq/L (98-107)
[2022-02-27 09:41] LABS: ETHANOL BLOOD < 10 mg/dL
[2022-02-27] MEDS ORDERED: DIVALPROEX SODIUM 500MG DR TABLET PO SCH (21:00)
== END 2022-02-27 09:45 | disposition left against medical advice (07) ==
LOC: ER 07:57
DX: F25.9 Schizoaffective disorder, unspecified (principal); R45.850 Homicidal ideations; F12.10 Cannabis abuse, uncomplicated
CPT/HCPCS: 36415; 80053; 80165; 80307; 80320; 80329; 85025; 99283; G0480